=== PATIENT | male | born 1945 ===

== ENCOUNTER 2020-06-03 11:45 | Inpatient (IN) | payer OTHER ==
[~2020-06-03] VITALS: Ht 182.9 cm; Wt 79.4 kg
[2020-06-03] MEDS ORDERED: ARAVA10 MG PO (14:09)
[2020-06-03] MEDS ORDERED: FOLIC ACID0.8 M1 PO (14:10)
[2020-06-03] MEDS ORDERED: AZULFIDINE500 M1 PO (14:10)
[2020-06-12] MEDS ORDERED: PERCOCET 5-3251 EACH PO (16:15)
[2020-06-12] MEDS ORDERED: ELIQUIS2.5 MG PO (16:15)
[2020-06-12] MEDS ORDERED: DUI500 PO (16:15)
== END 2020-06-12 18:42 | DRG 470 ==
LOC: SURH 06-10 06:07 → O/R 06-10 06:07 → RECOVERY 06-10 09:45 → SURG 06-10 15:11 → SEC-K 06-10 18:39 → SURH 06-10 18:41
PROVIDERS: ADMIT Orthopaedic Surgery; ATTEND Orthopaedic Surgery
PROC: 0SRC0J9 Replacement of Right Knee Joint with Synthetic Substitute, Cemented, Open Approach (ICD-10-PCS; principal; 2020-06-10 09:45)
DX: M17.11 Unilateral primary osteoarthritis, right knee (principal); M06.8A Other specified rheumatoid arthritis, other specified site; M81.8 Other osteoporosis without current pathological fracture; Z20.828 Contact with and (suspected) exposure to other viral communicable diseases